=== PATIENT | female | born 1990 | race African-American/Black ===

== ENCOUNTER 2017-10-11 16:05 | Emergency (ER) | payer MEDICAID ==
[~2017-10-11] VITALS: Ht 165.1 cm; Wt 60.5 kg
[2017-10-11 16:49] VITALS: BP 110/74
== END 2017-10-11 17:33 | disposition home or self-care (01) ==
LOC: EMS 16:08
DX: F41.9 Anxiety disorder, unspecified (principal); F17.210 Nicotine dependence, cigarettes, uncomplicated; Z01.83 Encounter for blood typing
CPT/HCPCS: 99281